=== PATIENT | female | born 1970 | race Asian ===

== ENCOUNTER 2021-08-20 16:50 | Outpatient (CLI) | payer BC | END 2021-08-20 21:27 | disposition home or self-care (01) | LOC: RAD 16:50 | PROVIDERS: ATTEND Nurse Practitioner Family | DX: M25.561 Pain in right knee (principal) ==

== ENCOUNTER 2021-09-14 14:43 | Outpatient (CLI) | payer BC | END 2021-09-14 19:02 | disposition home or self-care (01) | LOC: MRI 14:43 | PROVIDERS: ATTEND Internal Medicine | DX: S89.91XD Unspecified injury of right lower leg, subsequent encounter (principal); Y92.9 Unspecified place or not applicable ==

== ENCOUNTER 2022-05-22 10:29 | Day surgery (SDC) | payer BC ==
[~2022-05-22] VITALS: Ht 165.1 cm; Wt 72.6 kg
== END 2022-05-22 13:35 | disposition home or self-care (01) ==
LOC: OR 10:29
PROVIDERS: ATTEND Internal Medicine Gastroenterology
PROC: 0DJD8ZZ Inspection of Lower Intestinal Tract, Via Natural or Artificial Opening Endoscopic (ICD-10-PCS; principal; 2022-05-22)
DX: K57.30 Diverticulosis of large intestine without perforation or abscess without bleeding (principal); K64.8 Other hemorrhoids; Z12.11 Encounter for screening for malignant neoplasm of colon
CPT/HCPCS: J2704; J7120

== ENCOUNTER 2023-06-17 11:09 | Outpatient (CLI) | payer BC ==
[~2023-06-17 11:09] MED LIST: AMOX500C85 PO; CLARITIN10 M1 PO; CYCL10TA35 PO; FLUC150T PO; IBU800 MG PO; SLEEP AID PO; TIZA4TAB5 PO
== END 2023-06-17 20:15 | disposition home or self-care (01) ==
LOC: RESP 11:09
PROVIDERS: ATTEND Specialist
DX: R07.89 Other chest pain (principal); I10 Essential (primary) hypertension; E66.9 Obesity, unspecified